=== PATIENT | female | born 1990 | race Caucasian/White ===

== ENCOUNTER 2017-01-11 09:41 | Emergency (ER) | payer OTHER ==
[~2017-01-11] VITALS: Ht 157.5 cm; Wt 68.0 kg
[~2017-01-11 09:41] MED LIST: PRENATAL
[2017-01-11 09:52] VITALS: BP 160/101
--- NOTE | 2017-01-11 09:58 | NUR ---
Patient ambulated to bed 8. RETREAD MOLD OPERATOR evaluating patient at bedside.
--- NOTE | 2017-01-11 10:01 | NUR ---
PA student evaluating patient at bedside.
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
--- NOTE | 2017-01-11 10:22 | NUR ---
Dr. Vieira evaluating patient at bedside.
--- NOTE | 2017-01-11 10:23 | NUR ---
Female Yardage Estimator accompanied Dr. Vieira for a female patient for Pelvic Exam.
[2017-01-11] MEDS ORDERED: HYDROcodone/APAP 5/325 MG 1 TAB TAB PO ONE (10:50)
[2017-01-11 11:15] VITALS: BP 147/86
--- NOTE | 2017-01-11 11:16 | NUR ---
Patient discharged with v/s stable. Written and verbal after care instructions given and explained. Patient alert, oriented and verbalized understanding of instructions. Ambulatory with steady gait. All questions addressed prior to discharge. ID band removed. Patient advised to follow up with PMD. Rx of NORCO AND ACYCLOVIR given. Patient educated on indication of medication including possible reaction and side effects. Opportunity to ask questions provided and answered.
== END 2017-01-11 11:05 | disposition home or self-care (01) ==
LOC: MED 09:41
DX: Z11.3 Encounter for screening for infections with a predominantly sexual mode of transmission (principal); R10.2 Pelvic and perineal pain